=== PATIENT | female | born 1960 ===

== ENCOUNTER 2018-02-25 05:10 | Inpatient (IN) | payer OTHER ==
[2018-02-25] VITALS (8 sets, daily range): BP systolic 94–118; BP diastolic 63–71
[~2018-02-25] VITALS: Ht 142.2 cm; Wt 53.5 kg
[2018-02-25] MEDS ORDERED: NKM (05:50)
[2018-02-25] MEDS ORDERED: Zemuron 50mg/5ml Inj IV ONE (06:03)
[2018-02-25] MEDS ORDERED: LR 1000ml 1,000 ML IVLG SCH (06:10)
--- NOTE | 2018-02-25 06:12 | Anethesia Preoperative Eval ---
Anesthesia Pre-op PMH/ROS General Date of Evaluation: Feb 25, 2018 Time of Evaluation: 07:06 Anesthesiologist: Kelly ASA Score: ASA 2 Mallampati Score Class I : Soft palate, uvula, fauces, pillars visible Class II: Soft palate, uvula, fauces visible Class III: Soft palate, base of uvula visible Class IV: Only hard plate visible Mallampati Classification: Class I Surgeon: Suzie Diagnosis: Neck Pain Surgical Procedure: ACDF C5-6, C6-7 Anesthesia History: none Family History: no anesthesia problems Allergies: Coded Allergies: PENICILLINS (Verified Allergy, Severe, 02/25/18) rashes Medications: see eMAR Anesthesia Pre-op Phys. Exam Physician Exam Last Vital Signs Date Time Temp Pulse Resp B/P (MAP) Pulse Ox O2 Delivery O2 Flow Rate FiO2 02/25/18 05:54 97.3 66 20 118/63 (81) 98 97.3 02/25/18 05:50 Room Air Constitutional: NAD Neurologic: CN 2-12 intact Cardiovascular: RRR Respiratory: CTA Gastrointestinal: S/NT/ND Airway Exam Mallampati Score: Class I MO: limited ROM: limited Teeth: intact Anesthesia Pre-op A/P Risk Assessment & Plan Assessment: ASA 2 Plan: GA, BIS, GlideScope Status Change Before Surgery: No Pre-Antibiotics Dru Grams Ancef IV Given Within 1 Hr of Incision: Yes Time Given: 07:31 Stewrat Mendoza MD Feb 25, 2018 06:12
[2018-02-25] MEDS ORDERED: Labetalol 5mg/ml 20ml vial IV PRN (06:15)
[2018-02-25] MEDS ORDERED: DiphenhydrAMINE 50mg/ml Inj IVP PRN (06:15)
[2018-02-25] MEDS ORDERED: Ketorolac 30mg Inj IV PRN ×2 (06:15)
[2018-02-25] MEDS ORDERED: Atropine Inj 1mg/10ml Syr IV PRN (06:15)
[2018-02-25] MEDS ORDERED: Acetaminophen (Non formulary) 100 ML IV ONE (06:15)
[2018-02-25] MEDS ORDERED: Norco 5mg/325mg tab ORAL PRN (06:15)
[2018-02-25] MEDS ORDERED: HYDROcodone/Acetamin 7.5/325 tab ORAL PRN (06:15)
[2018-02-25] MEDS ORDERED: Midazolam 2mg/2ml Inj IVP PRN (06:15)
[2018-02-25] MEDS ORDERED: oxyCODONE HCL/Acetaminophen 5/325mg ORAL PRN (06:15)
[2018-02-25] MEDS ORDERED: LORazepam Inj 2mg/ml 1ml IV PRN (06:15)
[2018-02-25] MEDS ORDERED: Metoclopramide 10mg/2ml Inj IVP PRN (06:15)
[2018-02-25] MEDS ORDERED: fentaNYL 100 mcg/2 mL IV PRN (06:15)
[2018-02-25] MEDS ORDERED: Dexamethasone 20mg/5ml ONE (06:25)
[2018-02-25] MEDS ORDERED: Lidocaine 1% MPF 10mg/ml 5ml ONE (06:30)
[2018-02-25] MEDS ORDERED: Dexamethasone 4mg/ml vial ONE (06:30)
[2018-02-25] MEDS ORDERED: Sodium Chloride 10ml vial INJ ONE (06:30)
[2018-02-25] MEDS ORDERED: Lidocaine 1% Plain 30 ml INJ ONE ×2 (06:32→06:48)
[2018-02-25] MEDS ORDERED: fentaNYL 100 mcg/2 mL IV ONE (06:39)
[2018-02-25] MEDS ORDERED: Ketamine 500mg Inj ONE (06:45)
[2018-02-25] MEDS ORDERED: Thrombin 5000 units TOPIC ONE ×2 (06:47→07:10)
[2018-02-25] MEDS ORDERED: Bacitracin 50000 Units Vial ONE (06:48)
[2018-02-25] MEDS ORDERED: Bupivacaine 0.5% Inj 30 ml vial INJ ONE (06:48)
[2018-02-25] MEDS ORDERED: Gelfoam Size TOPIC ONE (06:49)
[2018-02-25] MEDS ORDERED: Propofol 1,000mg/ 100ml btl IV ONE (07:00)
[2018-02-25] MEDS ORDERED: Sterile Water Irrig 1000ml IRRIG ONE (07:00)
[2018-02-25] MEDS ORDERED: ceFAZolin sod 1 GM in NS 55 ML IVPB ONE (07:00)
[2018-02-25] MEDS ORDERED: NS Irrig 1000ml ONE (07:00)
[2018-02-25] MEDS ORDERED: LR 1000ml ONE (07:00)
[2018-02-25] MEDS ORDERED: Labetalol 5mg/ml 20ml vial IV ONE (07:00)
[2018-02-25] MEDS ORDERED: Dexamethasone 20mg/5ml IVP ONE (07:00)
--- NOTE | 2018-02-25 07:18 | Pre-Procedure Note/Attestation ---
Pre-Procedure Note/Attestation Complete Prior to Procedure Planned Procedure: not applicable Procedure Narrative: ACDF C5-C6, C6-C7 Indications for Procedure Pre-Operative Diagnosis: Trauma Cervical HNP Attestation I attest that I discussed the nature of the procedure; its benefits; risks and complications; and alternatives (and the risks and benefits of such alternatives ), prior to the procedure, with the patient (or the patient's legal sales representative leather goods). I attest that, if there was a reasonable possibility of needing a blood transfusion, the patient (or the patient's legal sales representative leather goods) was given the [facility] standardized written summary, pursuant to the Guy Bandar Blood Safety Act ([place] Health and Safety Code # 1645, as amended). I attest that I re-evaluated the patient just prior to the surgery and that there has been no change in the patient's H&P, except as documented below: JONA MARQUEZ Feb 25, 2018 07:18
--- NOTE | 2018-02-25 08:13 | Immediate Post-Op Evaluation ---
Immediate Post-Op Evalulation Immediate Post-Op Evalulation Procedure: ACDF C5-6, C6-7 Date of Evaluation: Feb 25, 2018 Time of Evaluation: 10:14 IV Fluids: 1000 LR Blood Products: 0 Estimated Blood Loss: 20 Urinary Output: 0 Blood Pressure Systolic: 102 Blood Pressure Diastolic: 64 Pulse Rate: 79 Respiratory Rate: 16 O2 Sat by Pulse Oximetry: 98 Temperature (Fahrenheit): 97.2 Pain Score (1-10): 3 Nausea: No Vomiting: No Complications 0 Patient Status: awake, reacts, patent, extubated, none Hydration Status: adequate Dru Grams Ancef IV Given Within 1 Hr of Incision: Yes Time Given: 07:31 Stewart Mendoza MD Feb 25, 2018 08:13
[2018-02-25] MEDS ORDERED: Neostigmine 1mg/ml 10ml Inj ONE (09:27)
[2018-02-25] MEDS ORDERED: Glycopyrrolate 0.2mg/ml 1ml Vial ONE (09:27)
--- NOTE | 2018-02-25 09:46 | Brief Operative Note ---
Immediate Post Operative Note Operative Note Pre-op Diagnosis: Trauma Cervical HNP Procedure: ACDF C5-6 C6-7 Fusion Internal Fixation Xray Magnification Post-op Diagnosis: same as pre-op Findings: consistent w/pre-op dx studies Surgeon: Suzie CASTRO Pad Cutter: Kathy TREVINO Anesthesiologist: Kelly CASTRO Anesthesia: general Specimen: yes Complications: none Condition: stable Fluids: anesthesia Estimated Blood Loss: minimal Implant(s) used?: Yes JONA MARQUEZ Feb 25, 2018 09:46
[2018-02-25] MEDS ORDERED: Chloraseptic Spray 20mL Bottle ORAL ONE (10:51)
[2018-02-25] MEDS ORDERED: HYDROcodone/Acetamin 10/325 tab ORAL PRN (11:00)
[2018-02-25] MEDS ORDERED: HYDROmorphone 1mg/ml Carpuject SUBQ PRN (11:00)
[2018-02-25] MEDS ORDERED: Chloraseptic Spray 20mL Bottle ORAL PRN (11:00)
[2018-02-25] MEDS ORDERED: D5 1/2NS 1,000 ML IV SCH (11:27)
[2018-02-25] MEDS: Hydromorphone 0.5mg/0.5ml inj IVP PRN ×2 (12:08→14:22)
[2018-02-25] MEDS ORDERED: ceFAZolin sod 1 GM in D5W 55 ML IV SCH (16:00)
--- NOTE | 2018-02-25 16:03 | Diagnostic Imaging Report ---
Indication: Neck pain Technique: Intraoperative fluoroscopic images from spinal surgery. Operating surgeon: Suzie Total fluoroscopy time: 16.4 seconds Total fluoroscopy dose: 0.78 mGy Comparison: None Findings: Intraoperative fluoroscopic images submitted for archival the PACS. Initial image demonstrates an indwelling endotracheal tube. A surgical measurement is noted projecting at the level of C6. Subsequent images demonstrate anterior to surgical discectomy and fusion at C5-C6 and C6-C7 with anterior fusion plate affixed by screws at each level as well as interbody spacers. Impression: Intraoperative fluoroscopic images from spinal surgery. Please see operative report.
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
--- NOTE | 2018-02-25 18:15 | Operative Note - Dictated ---
DATE OF OPERATION: 02/25/2018 SURGEON: Giuseppe Larsen, Ph.D., M.D. BRAKE LINING CURER: URIEL Ryan. ANESTHESIOLOGIST: Dr. Mendoza ANESTHESIA: General with intubation. ESTIMATED BLOOD LOSS: Minimal. COMPLICATIONS: None. POSTOPERATIVE CONDITION: Good/stable. ADMITTING/ PREOPERATIVE DIAGNOSIS: Posttraumatic discogenic radiculopathy of cervical spine. POSTOPERATIVE DIAGNOSIS: Posttraumatic discogenic radiculopathy of cervical spine. OPERATIVE PROCEDURE: C5-C6 anterior cervical diskectomy, fusion, placement of osteopromotive material, decompression spinal cord/foraminotomies. C5-C6, anterior cervical diskectomy, fusion, osteopromotive material interbody titanium graft, decompression spinal cord/foraminotomies, anterior internal fixation C5, C6, and C7, intraoperative fluoroscopy interpreted by surgeon, and high-powered magnification and dissection. DESCRIPTION OF PROCEDURE: The patient was brought to the operating room and in the supine position, general anesthesia with intubation was induced. IV antibiotics, IV Decadron were administered 30 minutes prior to incision time. After appropriate positioning, a cross-table image was obtained with markers in place (on the contralateral aspect from incision of the cervical spine without penetration of the skin). Incision was utilized by fluoroscopic guidance for incision level placement. Skin was marked sterilely with a sterile marking pen on the left side of the neck. Marker on the right side of the neck removed. Neck sterilely prepped and draped free in usual sterile fashion. A transverse incision at the appropriate interval was sharply placed through dermis and epidermis. Electrocautery dissection was carried through the subcutaneous tissue to the level of the platysmas muscle that was identified, isolated and transected in line with the incision. Blunt dissection was carried medial to the left sternocleidomastoid muscle through the deep cervical and pretracheal fascia to the midline between the right and left longus colli muscles. A spinal needle that was bent at 90-degree angle so as to avoid penetration greater than 3 mm into the disk space was placed into the disk space. A cross-table image was obtained under sterile conditions demonstrating a correct level for the dissection at C5-C6. Level was marked. Needle removed. Exposure was taken to C6-C7. Retractors placed. The needle also bent at 90-degree angles to avoid penetration greater than 3 mm. The was placed into the disk space and a cross-table image was obtained confirming C6-C7. Level was marked. Needle removed. Anterior osteophyte resected under high-powered magnification. Diskectomy too, but not through the posterior longitudinal ligament. High-speed Midas Bryan bur utilization for paralleling the cephalad caudad endplates. Posterior longitudinal ligament resected, decompression spinal cord, foraminotomies. No dural tears or leaks anytime during the procedure. Interpositional grafting with the appropriate dimension, lordotic titanium graft containing osteopromotive material with local autograft. Tamped into position, position excellent. Of note is that the implant instrumentation contains nonremovable/adjustable stops to avoid penetration greater than 1 mm from the anterior cortex of the vertebral body. Fluoroscopic image obtained demonstrating correct level and excellent position. Attention was turned to the C5-C6 interval. Anterior osteophyte resected under high-powered magnification, Midas Bryan bur dissection. Diskectomy too, but not through the posterior longitudinal ligament, followed endplate preparation. Posterior longitudinal ligament resected with decompression of the spinal cord and foraminotomies. No dural tears or leaks anytime during the procedure. Interpositional grafting with lordotic titanium graft of the appropriate dimensions after trial determined. The graft containing osteopromotive material in combination with local autograft. Excellent position by fluoroscopic guidance. A 10 pounds of traction on the neck was removed. Anterior internal fixation was undertaken in a compressive fashion using 13 mm screws, bilateral screws at C4, C5, anterior plate of the appropriate dimensions placed followed with internal fixation, bilateral screws C5, C6, C7 locked. Fluoroscopic image obtained and printed. Wound irrigated with antibiotic-containing saline. Exploration revealed no obvious excoriation or laceration of vital structures. FloSeal applied. Reapproximation of the platysmas muscle with Vicryl suture material. Running subcuticular suture followed with surgical strips and sterile bandage. The patient was awakened, extubated in the operating room, and transported to postoperative recovery in good/stable condition. Giuseppe Larsen M.D. DR: VERNA JOB#: [id number] CC:
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
[2018-02-26 12:38] VITALS: BP 96/65
--- NOTE | 2018-02-26 12:38 | 48 Hour Post Anesthesia Eval ---
Post Anesthesia Evaluation Procedure: ACDF C5-6, C6-7 Date of Evaluation: Feb 25, 2018 Time of Evaluation: 16:00 Blood Pressure Systolic: 96 0: 65 Pulse Rate: 84 Respiratory Rate: 19 Temperature (Fahrenheit): 97.6 O2 Sat by Pulse Oximetry: 94 Airway: patent Nausea: No Vomiting: No Pain Intensity: 0 Hydration Status: adequate Mental Status/LOC: patient returned to baseline Post-Anesthesia Complications: none Follow-up care needed: N/A Kay Elizabeth M.D. Feb 26, 2018 12:38
== END 2018-02-25 18:43 | disposition home or self-care (01) | DRG 473 ==
LOC: SUR 05:10 → 3E 11:14
PROC: 0RB30ZZ Excision of Cervical Vertebral Disc, Open Approach (ICD-10-PCS; principal; 2018-02-25 07:00)
PROC: 0RG20A0 Fusion of 2 or more Cervical Vertebral Joints with Interbody Fusion Device, Anterior Approach, Anterior Column, Open Approach (ICD-10-PCS; principal; 2018-02-25 07:00)
DX: M50.122 Cervical disc disorder at C5-C6 level with radiculopathy (principal); V89.2XXS Person injured in unspecified motor-vehicle accident, traffic, sequela; Z88.0 Allergy status to penicillin; M19.90 Unspecified osteoarthritis, unspecified site
CPT/HCPCS: 36415; 72040; 76001; 86850; 86900; 86901; 87081; J2405; J2710